=== PATIENT | female | born 1980 | race American Indian/Alaskan Native ===

== ENCOUNTER 2017-04-19 09:44 | Emergency (ER) | payer MEDICAID, OTHER ==
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
[2017-04-19] MEDS ORDERED: NACL 0.9% 500 ML IR ONE (13:39)
[2017-04-19] MEDS ORDERED: NORCO 5/325 PO ONE (14:07)
[2017-04-19] MEDS ORDERED: TRIPLE ANTIBIOTIC TP ONE (14:08)
[2017-04-19] MEDS ORDERED: NACL 0.9% 500 ML IRRIGATION ONE (14:09)
[2017-04-19 14:22] VITALS: BP 111/72
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
== END 2017-04-19 16:16 | disposition home or self-care (01) ==
LOC: ED 09:44
DX: S81.812A Laceration without foreign body, left lower leg, initial encounter (principal); W45.8XXA Other foreign body or object entering through skin, initial encounter; Y93.9 Activity, unspecified; Y92.9 Unspecified place or not applicable; Y99.9 Unspecified external cause status
CPT/HCPCS: 99283; A6250

== ENCOUNTER 2019-03-21 03:09 | Emergency (ER) | payer OTHER ==
[2019-03-21 03:21] VITALS: BP 102/50
--- NOTE | 2019-03-21 08:29 | Emergency Department Report ---
Upper Extremity - HPI Chief Complaint: Shoulder Injury Stated Complaint: SHOULDER AND NECK PAIN Time Seen by Provider: 03/21/19 08:24 Upper Extremity: Left Shoulder Occurred When: >5 Days (intermittent pain for 3 months now pain has come back today.) Mechanism: Other [place] Symptoms: No Pain with Movement, No Deformity, No Limited Range of Movement, No Numbness, No Weakness, No Swelling, No Bruising/Ecchymosis, No Laceration or Abrasion Other History: 38 y/o female comes in the ER for intermittent shoulder pain for 3 months with a 1 day history of getting worst. Patient reports left shoulder pain that radiates to the left side of neck. 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 Has not taking anything for pain. Denies any recent trauma. No pmh, no meds, NKDA. ED Review of Systems ROS: Stated complaint: SHOULDER AND NECK PAIN Other details as noted in HPI Comment: All other systems reviewed and negative Constitutional: denies: chills, fever Eyes: denies: eye pain, eye discharge, vision change ENT: denies: ear pain, throat pain Respiratory: denies: cough, shortness of breath, wheezing Cardiovascular: denies: chest pain, palpitations Endocrine: no symptoms reported Gastrointestinal: denies: abdominal pain, nausea, diarrhea Genitourinary: denies: urgency, dysuria, discharge Musculoskeletal: arthralgia (left shoulder. ) ED Past Medical Hx - Past Medical History Previous Medical History?: No Hx Hypertension: No Hx Heart Attack/AMI: No Hx Congestive Heart Failure: No Hx Diabetes: No Hx Deep Vein Thrombosis: No Hx Pulmonary Embolism: No Hx Liver Disease: No Hx Renal Disease: No Hx Sickle Cell Disease: No Hx Headaches / Migraines: No Hx Seizures: No Hx Asthma: No Hx COPD: No Hx Tuberculosis: No Hx HIV: No - Surgical History Past Surgical History?: No - Social History Smoking Status: Never Smoker Substance Use Type: None - Medications Home Medications: Home Medications Medication Instructions Recorded Confirmed Last Taken Type Vits96/Iron Fum/Folic 1 tab PO DAILY 12/17/13 01/16/14 12/12/13 History [ Tablet] 0800 Amoxicillin/K Clav Tab [Augmentin 1 tab PO Q12HR #20 tab 04/19/17 Unknown Rx 875 mg] HYDROcodone/APAP 5-325 [[place] 1 each PO Q6HR PRN #12 tablet 04/19/17 Unknown Rx 5-325 mg TAB] Ibuprofen [Motrin] 800 mg PO Q8HR PRN #30 tablet 04/19/17 Unknown Rx Ibuprofen [Motrin 600 MG tab] 600 mg PO Q8H PRN #21 tablet 03/21/19 Unknown Rx Upper Extremity Exam - Exam General: Vital signs noted. No distress. Alert and acting appropriately. Head and Torso: No HEENT Abnormality, No Neck Tenderness, No Chest/Lungs Abnormality, No Abdominal Tenderness, No Back Tenderness Shoulder Exam: Yes Normal Range of Motion in Shoulder, No Shoulder Tenderness, No Clavicle Tenderness, No Shoulder Deformity, No AC Joint Tenderness Arm Exam: No Arm/Humerus Tenderness, No Arm Deformity Elbow: No Elbow Tenderness, No Normal Range of Motion in Elbow, No Elbow Deformity Forearm: No Forearm Tenderness, No Forearm Deformity, No Pain with Pronation, No Pain with Supination Wrist: Yes Normal ROM in Wrist, No Wrist Tenderness, No Wrist Deformity, No Snuffbox Tenderness, No Pain with Axial Thumb Compression Hand: Yes Normal ROM in Digit(s), No Hand Tenderness, No Hand Deformity, No Digit Tenderness, No Digit(s) Deformity, No Tendon Dysfunction CMS Exam: No Broken Skin, No Normal Distal Pulses, No Normal Capillary Refill, No Normal Distal Sensation ED Course Vital Signs 03/21/19 03:15 Temperature 97.5 F L Pulse Rate 78 Respiratory 18 Rate Blood Pressure 102/50 O2 Sat by Pulse 98 Oximetry ED Medical Decision Making - Medical Decision Making 38 y/o female comes in for left side neck pain. No trauma. Ibuprofen given for pain. Discuss with patient that lifting heavy object is most likely do to her pain. Ibuprofen or Aleve will help with pain. Critical care attestation.: If time is entered above; I have spent that time in minutes in the direct care of this critically ill patient, excluding procedure time. ED Disposition Clinical Impression: Muscle strain, shoulder region Qualifiers: Encounter type: initial encounter Laterality: left Qualified Code(s): S46.912A - Strain of unspecified muscle, fascia and tendon at shoulder and upper arm level, left arm, initial encounter Disposition: TO HOME OR SELFCARE Is pt being admited?: No Does the pt Need Aspirin: No Condition: Stable Instructions: Muscle Strain (ED) Additional Instructions: Take meds as needed. Drink plenty of fluids. Prescriptions: Ibuprofen [Motrin 600 MG tab] 600 mg PO Q8H PRN #21 tablet PRN Reason: Pain , Severe (7-10) Referrals: LORENZO LYNN MD [Primary Care Provider] - 3-5 Days Forms: Work/School Release Form(ED)
[2019-03-21] MEDS ORDERED: IBUPROFEN PO ONE (08:35)
== END 2019-03-21 08:48 | disposition home or self-care (01) ==
LOC: ED 03:09
DX: S46.912A Strain of unspecified muscle, fascia and tendon at shoulder and upper arm level, left arm, initial encounter (principal); X50.0XXA Overexertion from strenuous movement or load, initial encounter; Y93.89 Activity, other specified; Y92.59 Other trade areas as the place of occurrence of the external cause; Y99.8 Other external cause status
CPT/HCPCS: 99282